=== PATIENT | female | born 1980 | race Caucasian/White ===

== ENCOUNTER 2022-01-28 12:46 | Observation (INO) | payer OTHER ==
[~2022-01-28] VITALS: Ht 167.6 cm; Wt 63.5 kg
[2022-01-28 14:27] LABS: HEMOGLOBIN 12.3 gm/dl (12.3-15.3); RED BLOOD COUNT 4.28 M/UL (4.00-5.10); WHITE BLOOD COUNT 24.8 K/UL (4.5-11.0)
[2022-01-28 14:39] LABS: BUN/CREATININE RATIO 15 (0-10)
[2022-01-28] MEDS ORDERED: TYLENOL EXTRA500 MG PO (17:36)
[2022-01-28] MEDS ORDERED: ZOFRAN 4 MG TAB4 MG PO (17:36)
[2022-01-29 04:09] LABS: HEMOGLOBIN 10.2 gm/dl (12.3-15.3); RED BLOOD COUNT 3.58 M/UL (4.00-5.10); WHITE BLOOD COUNT 17.3 K/UL (4.5-11.0)
[2022-01-29 04:41] LABS: BUN/CREATININE RATIO 15 (0-10)
[2022-01-30 06:22] LABS: HEMOGLOBIN 9.9 gm/dl (12.3-15.3); RED BLOOD COUNT 3.53 M/UL (4.00-5.10)
[2022-01-30 06:29] LABS: WHITE BLOOD COUNT 10.9 K/UL (4.5-11.0)
[2022-01-30 06:52] LABS: BUN/CREATININE RATIO 9 (0-10)
[2022-01-30] MEDS ORDERED: CEFUROXIME500 MG PO (09:52)
[2022-01-30] MEDS ORDERED: ZOFRAN 4 MG TAB4 MG PO (10:00)
[2022-01-30] MEDS ORDERED: DOCUSATE SODIU100 MG PO (10:00)
[2022-01-30] MEDS ORDERED: POLYETHYLENE GL17 GM PO (10:00)
== END 2022-01-30 11:14 | disposition home or self-care (01) ==
LOC: ER1 12:46 → MED SURG 4 17:21 → CDU 17:21 → MED SURG 4 01-29 06:11
PROVIDERS: Physician Assistant; Physician Assistant Medical; ADMIT Internal Medicine Infectious Disease
DX: N30.00 Acute cystitis without hematuria (principal); B96.20 Unspecified Escherichia coli [E. coli] as the cause of diseases classified elsewhere; N13.30 Unspecified hydronephrosis; D64.9 Anemia, unspecified; K59.00 Constipation, unspecified; E87.6 Hypokalemia; Z86.16 Personal history of COVID-19; Z88.2 Allergy status to sulfonamides; Z20.822 Contact with and (suspected) exposure to COVID-19
CPT/HCPCS: 36415; 80048; 81001; 83605; 83735; 84132; 84703; 85025; 85027; 87040; 87077; 87086; 87186; 96374; 96375; 96376; 99285; G0378; J0696; J1885; J2270; J2405; J7030; U0002